=== PATIENT | male | born 1975 | race Caucasian/White ===

== ENCOUNTER 2017-03-27 10:23 | Emergency (ER) | payer OTHER ==
[~2017-03-27] VITALS: Ht 190.5 cm; Wt 115.7 kg
[~2017-03-27 10:23] MED LIST: ALLEGRA-D 24 H1 EACH PO
== END 2017-03-27 11:55 | disposition home or self-care (01) ==
LOC: ED 10:23
DX: R42 Dizziness and giddiness (principal); F17.200 Nicotine dependence, unspecified, uncomplicated; Z88.1 Allergy status to other antibiotic agents; Z79.899 Other long term (current) drug therapy
CPT/HCPCS: 99282